=== PATIENT | male | born 1960 | race Caucasian/White ===

== ENCOUNTER → 2020-10-31 | Outpatient (CLI) | payer BC ==
[~2020-10-31] MED LIST: CLONAZEPAM 0.50.5 M1 PO; COZAAR 25 MG TA25 M1 PO; HYDROCODON-ACE1 EAC7 PO; MOBIC15 MG PO; NORVASC5 MG PO; TRAMADOL 50 MG50 MG PO; WELLBUTRIN XL300 MG PO; XARELTO10 MG PO
== END ==
LOC: M.LAB 16:02
PROVIDERS: ATTEND Orthopaedic Surgery
DX: Z01.812 Encounter for preprocedural laboratory examination (principal); Z20.822 Contact with and (suspected) exposure to COVID-19